=== PATIENT | male | born 1965 | race Caucasian/White ===

== ENCOUNTER → 2017-08-11 | Outpatient (CLI) | payer BC ==
--- NOTE | 2017-08-11 08:46 | Diagnostic Imaging Report ---
INDICATION: Pain in the first metacarpal. TIME OF EXAM: 8:29 AM FINDINGS: The metacarpals appear intact. The phalanges are intact. No fractures are seen. Joint spaces are maintained. Carpus is unremarkable. Alignment is normal. IMPRESSION: No acute bony abnormality is detected. Report given to Dr. Bajwa at 8:45 a.m. 08/11/2017/anahi Dictated by: Dictated on workstation # [id number]
== END ==
LOC: RAD 08:02
PROVIDERS: ATTEND Family Medicine
DX: R22.31 Localized swelling, mass and lump, right upper limb (principal)
CPT/HCPCS: 73130

== ENCOUNTER → 2017-08-17 | Outpatient (CLI) | payer BC ==
[2017-08-17 17:19] LABS: ALANINE AMINOTRANSFERASE 30 U/L (0-55); ALBUMIN 4.3 GM/DL (3.2-4.5); ALKALINE PHOSPHATASE 55 U/L (40-136); BILIRUBIN,TOTAL 0.5 MG/DL (0.1-1.0); BUN/CREATININE RATIO 17; CALCIUM 9.2 MG/DL (8.5-10.1); CARBON DIOXIDE 21 MMOL/L (21-32); CHLORIDE 104 MMOL/L (98-107); CREATININE SERUM 0.81 MG/DL (0.60-1.30); GFR ESTIMATED > 60; GLUCOSE 68 MG/DL (70-105); POTASSIUM 4.2 MMOL/L (3.6-5.0); SODIUM 139 MMOL/L (135-145); TOTAL PROTEIN 7.5 GM/DL (6.4-8.2)
== END ==
LOC: LAB 16:40
PROVIDERS: ATTEND Nurse Practitioner Family
DX: M62.838 Other muscle spasm (principal)
CPT/HCPCS: 36415; 80053

== ENCOUNTER → 2021-06-05 | Outpatient (CLI) | payer BC ==
--- NOTE | 2021-06-05 12:09 | Diagnostic Imaging Report ---
Indication: Fall with right rib pain as well as shortness of breath and wheezing. Heart size normal. Lungs are clear. No infiltrates are seen. No effusion or pneumothorax. No displaced rib fractures identified. IMPRESSION: No acute abnormality is detected. Report was called to Juliana Roca APRN by toni at 12:08PM. Dictated by: Dictated on workstation # [id number]
== END ==
LOC: RAD 11:18
PROVIDERS: ATTEND Nurse Practitioner Family
DX: R07.81 Pleurodynia (principal); R06.02 Shortness of breath; R06.2 Wheezing; W07.XXXA Fall from chair, initial encounter; Z72.0 Tobacco use
CPT/HCPCS: 71101

== ENCOUNTER 2022-06-11 05:08 | Observation (INO) | payer BC ==
[~2022-06-11] VITALS: Ht 178 cm; Wt 106.0 kg
[2022-06-11] MEDS ORDERED: ACETAMINOPHEN 325 MG TABLET PO PRN (08:15)
[2022-06-11] MEDS ORDERED: polyethylene glycoL POWDER 17 GM (MIRALAX) PACK PO PRN (08:15)
[2022-06-11] MEDS ORDERED: MILK OF MAGNESIA 400 MG/5 ML 30 ML UDC PO PRN (08:15)
[2022-06-11] MEDS ORDERED: diphenhydrAMINE 25 MG TAB (BENADRYL) PO PRN (08:15)
[2022-06-11] MEDS ORDERED: ONDANSETRON 4 MG/2 ML (SDV) Z0FRAN IV PRN (08:15)
[2022-06-11] MEDS ORDERED: dilTIAZem DRIP PRE-MIX 125 ML IV SCH (08:15)
[2022-06-11] MEDS ORDERED: CALCIUM CARBONATE 500 MG (TUMS) TAB.CHEW PO PRN (08:15)
[2022-06-11] MEDS ORDERED: ANTACID SUSP 30 ML UDC (MYLANTA) PO PRN (08:15)
[2022-06-11] MEDS ORDERED: MELATONIN 3 MG TABLET PO PRN (08:15)
[2022-06-11] MEDS ORDERED: diphenhydrAMINE 50 MG/ML INJ (BENADRYL) IVP PRN (08:15)
[2022-06-11] MEDS ORDERED: BISACODYL 10 MG SUPP (DULCOLAX) PR PRN (08:15)
[2022-06-11] MEDS ORDERED: LACTULOSE SYRUP 10GM/15ML (ENULOSE) 30ML UDC PO PRN (08:15)
[2022-06-11] MEDS ORDERED: ONDANSETRON 4 MG (ZOFRAN) ORAL DISSOLVE TAB PO PRN (08:15)
[2022-06-11] MEDS: NITROGLYCERIN 0.4 MG SL TABS BTL 25'S SL PRN ×3 (08:45→08:58)
[2022-06-11] MEDS ORDERED: ASPIRIN 81 MG CHEW (CHILDREN'S ASA) PO SCH (09:00)
[2022-06-11] MEDS ORDERED: ALPR1TAB7 PO (09:03)
[2022-06-11] MEDS ORDERED: ESOM40CA52 PO (09:03)
[2022-06-11] MEDS ORDERED: ROSU20TA32 (09:03)
[2022-06-11] MEDS ORDERED: ZOLP10TA PO (09:03)
[2022-06-11] MEDS ORDERED: PANT40TA52 PO (09:03)
[2022-06-11] MEDS ORDERED: NICOTINE 21 MG (NICODERM) PATCH TD NR (09:30)
--- NOTE | 2022-06-11 09:40 | Cardiac Procedure Note-CS/ASA ---
Pre-Procedure Note Pre-Op Procedure Note Date of Available H&P: Jun 11, 2022 Date H&P Reviewed: Jun 11, 2022 Time H&P Reviewed: 09:40 History & Physical: H&P Reviewed, Patient Examed, No changes noted Pre-Operative Diagnosis: Non-ST elevation myocardial infarction Conscious Sedation Pre-Proced Time 09:40 ASA Score 3 For ASA 3 and 4: Consider anesthesia and medical clearance. Also, for patients with a history of failed moderate sedation consider anesthesia. Airway Lungs Heart ASA score ASA 1: a normal healthy patient ASA 2: a patient with a mild systemic disease (mid diabetes, controlled hypertension, obesity ASA 3: a patient with a severe systemic disease that limits activity (angina, COPD, prior Myocardial infarction) ASA 4: a patient with an incapacitating disease that is a constant threat to life (CHF, renal failure) ASA 5: a moribund patient not expected to survive 24 hrs. (ruptured aneurysm) ASA 6: a declared brain- patient whose organs are being harvested. For emergent operations, add the letter E after the classification Mallampati Classification Grade 3 Sedation Plan Analgesia, Amnesia, Plan communicated to team members, Discussed options with patient/fam, Discussed risks with patient/fam The patient is an appropriate candidate to undergo the planned procedure, sedation, and anesthesia. The patient immediately re-assessed prior to indication. HANNY ASH MD Jun 11, 2022 09:40
--- NOTE | 2022-06-11 09:40 | Consultation-Cardiology ---
HPI-Cardiology Cardiology Consultation Date of Consultation 06/11/22 Date of Admission Time Seen by Provider: 09:36 Indication: Chest pain HPI 56-year-old gentleman with history of hyperlipidemia, gastroesophageal reflux disease. Has been having chest pain and left arm pain for about 2 weeks. Yesterday the pain became more severe. [place] discomfort in his left chest and left arm. Came into the emergency room and noted to be in atrial fibrillation with rapid ventricular response. He was transferred from [facility] emergency room. On my evaluation he has converted to sinus rhythm, still having mild chest discomfort, have a Nitropatch on. Reporting episodes of chest pain on and off with exertion on the past few weeks. Has history of gastroesophageal reflux disease, an active smoker and drinking about 5-6 beers daily Home Medications & Allergies Allergies: Coded Allergies: No Known Allergies (Verified Allergy, Unknown, 01/31/06) Home Medication List Reviewed: Yes JJY-Pukpfw-Dxwxox Hx Patient Social History Marital Status: Employed/Student: employed Smoking Status: Current Everyday Smoker Have you traveled recently?: No Alcohol Use?: Yes Past Medical History Discussed below Family Medical History Significant Family History: No Pertinent Family Hx Review of Systems-General Review of Systems Constitutional: no symptoms reported, see HPI EENTM: see HPI, no symptoms reported Respiratory: no symptoms reported, see HPI, dyspnea on exertion Cardiovascular: see HPI, chest pain; No edema, No Hx of Intervention; palpitations; No syncope, No vascular heart diseas, No other Gastrointestinal: no symptoms reported, see HPI Genitourinary: no symptoms reported, see HPI Musculoskeletal: no symptoms reported, see HPI Skin: no symptoms reported, see HPI Psychiatric/Neurological: No Symptoms Reported, See HPI Reviewed Test Results Reviewed Test Results Lab Laboratory Tests Test 06/11/22 08:54 Range/Units Troponin I 4.716 *H <0.028 NG/ML Physical Exam Physical Exam Vital Signs Vital Signs - First Documented 06/11/22 08:00 Pulse 82 Resp 20 B/P (MAP) 150/91 (110) Pulse Ox 95 O2 Delivery Room Air Capillary Refill : Height, Weight, BMI Height: '" Weight: lbs. oz. kg; 33.36 BMI Method: General Appearance: No Apparent Distress, WD/WN Eyes: Bilateral Eye Normal Inspection, Bilateral Eye PERRL, Bilateral Eye EOMI HEENT: PERRL/EOMI, TMs Normal, Normal ENT Inspection, Pharynx Normal, Moist Mucous Membranes Neck: Full Range of Motion, Normal Inspection, Non Tender, Supple, Carotid Bruit Respiratory: Chest Non Tender, Normal Breath Sounds, No Accessory Muscle Use, No Respiratory Distress Cardiovascular: Regular Rate, Rhythm, No Edema, No Gallop, No JVD, No Murmur, Normal Peripheral Pulses Gastrointestinal: Normal Bowel Sounds, No Organomegaly, No Pulsatile Mass, Non Tender, Soft Back: Normal Inspection, No CVA Tenderness, No Vertebral Tenderness Extremity: Normal Capillary Refill, Normal Inspection, Normal Range of Motion, Non Tender, No Calf Tenderness, No Pedal Edema Neurologic/Psychiatric: Alert, Oriented x3, No Motor/Sensory Deficits, Normal Mood/Affect Skin: Normal Color, Warm/Dry Lymphatic: No Adenopathy A/P-Cardiology Admission Diagnosis Non-ST elevation myocardial infarction Paroxysmal atrial fibrillation Hyperlipidemia Tobaccoism Assessment/Plan Non-ST elevation myocardial infarction, probably underlying coronary artery disease, could be secondary to atrial fibrillation with rapid ventricular response Planning to proceed with cardiac catheterization possible PTCA Patient received aspirin 325 mg in the emergency room in addition to Lovenox 90 mg. Atrial fibrillation with rapid ventricular response, started on Cardizem drip, converted to sinus rhythm, new onset. Hyperlipidemia, maintained on statin Gastroesophageal reflux disease, maintained on PPI, discussed the need for endoscopy Tobaccoism, educated on the importance of smoking cessation Moderate alcoholism, drinks 5-6 beers daily, educated on avoiding alcohol. Obesity, BMI 33, discussed weight loss HANNY ASH MD Jun 11, 2022 09:40
[2022-06-11] MEDS ORDERED: fentaNYL INJ 100 MCG/2 ML AMP ONE (09:56)
[2022-06-11] MEDS ORDERED: MIDAZOLAM 5 MG/5 ML (VERSED) VIAL ONE (09:56)
[2022-06-11] MEDS ORDERED: VERAPAMIL 5 MG/2 ML (CALAN) VIAL IV ONE (09:56)
[2022-06-11] MEDS ORDERED: LIDOCAINE 1% INJ 30 ML (XYLOCAINE) VIAL ONE (09:56)
[2022-06-11] MEDS ORDERED: HEParin 1000 UNIT/ML (10ML VIAL) FOR BOLUS ONE (09:56)
[2022-06-11] MEDS ORDERED: NS IV 1000 ML 1,000 ML ONE (09:57)
[2022-06-11] MEDS ORDERED: HEParin (CATH LAB) 2,000 ML IV ONE (09:57)
[2022-06-11] MEDS ORDERED: NITRO DRIP 25000 MCG/D5W 250 ML IV ONE (09:57)
[2022-06-11] MEDS ORDERED: EPTIFIBATIDE BOLUS 20 ML IV ONE (10:57)
[2022-06-11] MEDS ORDERED: CLOPIDOGREL 300 MG (PLAVIX) TABLET PO ONE (11:26)
[2022-06-11] MEDS ORDERED: PATIENT MAY USE OWN MEDS, ALL PO SCH (11:30)
--- NOTE | 2022-06-11 11:34 | Cardiac Cath Report ---
Cardiac Cath Report Physician (s)/Remote Sensing Program Manager (s) Physician HANNY ASH MD Pre-Procedure Diagnosis Pre-Procedure Diagnosis: Non-ST elevation myocardial infarction Post-Procedure Note Procedure Start Date: Jun 11, 2022 Procedure Start Time: 11:25 Name of Procedure: Left heart catheterization Abdominal aortogram Stenting of the circumflex artery Findings/Procedure Note PROCEDURE NOTE: 56-year-old gentleman with history of hyperlipidemia, tobaccoism. Patient has been having waxing and waning chest pain for about 3 weeks, had severe chest pain last night, came into the emergency room and noted to be in atrial fibrillation and having ST depression in the anterior lateral leads and inferior leads. Overnight he converted to sinus rhythm and he continued to have chest pain, cardiac catheterization was advised. After explaining the procedure to the patient, all pros and cons were explained, all questions were answered. The patient signed the consent and then he was placed in the cardiac catheterization laboratory. Groin was prepped in SL fashion local anesthesia was used. I attempted to place a sheath in the right radial artery, could not advance the wire, sheath placed in the right femoral artery artery. I was unable to advance J-wire through the abdominal aorta, I used a long Storq wire and used exchange catheter Gilda' right and left catheter were used to access the coronary system. Pigtail was used to access the left ventricular cavity. Left ventriculogram was not done Pullback LV to aorta was done then I pulled the pigtail down to the abdominal aorta and did abdominal aortogram. Patient was noted to have total occlusion at the mid circumflex artery after the origin of the first obtuse marginal branch. Received 5000 units of heparin, double bolus Integrilin, EBU guide was used and BMW wire was advanced I was able to cross the total occlusion and advanced to the posterior descending artery of the circumflex artery that appeared to be a dominant artery. I proceeded with balloon angioplasty using 2.5 x 20 mm balloon reestablished flow in the circumflex artery appears to be large artery having large first obtuse marginal branch, there is severe stenosis at the second obtuse marginal branch and diffuse disease distally. I advanced a second wire whisper extra-support and placed it in the second obtuse marginal branch then proceeded with balloon angioplasty to the ostium of the obtuse marginal branch with multiple inflation which resolve the obstruction. Then proceeded with deployment of liberty point stent 2.5 x 23 mm placed carefully after the origin of the first obtuse marginal branch deployed under 12atm to 2.65 mm with excellent results. No residual stenosis. At the end of the procedure the sheath was removed. Closure device was deployed FINDINGS: Hemodynamics LV 128/27, end-diastolic pressure of 27 Aorta 126/76 mean of 86 ANATOMY: Left Main is free of obstructive disease Left Anterior Descending has 70% stenosis at the midportion. I am planning for intervening at a later point to limit the exposure to the contrast Left Circumflex has total occlusion of the midportion successful balloon angioplasty and deployment of liberty point stent 2.5 x 23 mm with 0% residual stenosis, PAULA-3 flow postintervention compared to no flow prior to the intervention. The second obtuse marginal branch had 90% ostial stenosis successful balloon angioplasty with 2 x 20 balloon with 0% residual stenosis. 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 Normal SMA and DAISY and renal arteries PERCUTANEOUS INTERVENTION: Pre stenosis 100% Post Stenosis 0% Pre PAULA flow 0 Post PAULA flow 3 Dominance left circumflex CONCLUSION: 1. Total occlusion at the mid circumflex artery with successful angioplasty and stenting using liberty point 2.5 x 23 mm with excellent result no residual stenosis 2. 90% stenosis at the ostium of a second obtuse marginal branch with successful balloon angioplasty with 2 x 20 balloon with excellent results 3. 50% ostial first obtuse marginal branch that is treated conservatively 4. 70% mid LAD stenosis that will be staged for intervention at a later point 5. Small nondominant right coronary artery 6. Elevated left ventricular end-diastolic pressure 7. Difficulty advancing the wire through the abdominal aorta, no dissection or aneurysm. DISCUSSION AND RECOMMENDATION: Patient was started on aspirin, Plavix, metoprolol, losartan, Lipitor 80 mg and Protonix. I will continue maximizing medical therapy and planning to add Xarelto Anesthesia Type: Conscious Sedation Estimated blood loss (mL): 25 ml Contrast Amount: 150 ml Total Radiation Dose: 1602 mGy Post-Procedure Diagnosis Post-operative diagnosis: Non-ST elevation myocardial infarction Coronary artery disease Hyperlipidemia Paroxysmal atrial fibrillation HANNY ASH MD Jun 11, 2022 11:33
--- NOTE | 2022-06-11 11:47 | History & Physical-Hospitalist ---
History of Present Illness HPI/Chief Complaint Phil Harding is a 56 year old male with PMH HLD, GERD, obesity, who presented to [facility] ER with chest pain. He reports having intermittent chest pain for several weeks. He thought it was due to acid reflux. He denies palpitations. Last night, he had more severe chest pain which was sharp in the middle of his chest. He also had nausea and vomiting. He had pain in his left arm. He has no history of heart disease. He smokes a pack and a half of cigarettes daily. He drinks about 6 beers each night. He was found to be in AFib with RVR at [facility] and started on a Cardizem drip. He was given one dose of Lovenox. He also had an elevated troponin. His heart rate is now well controlled. He continues to have chest pain on my exam. Source: patient, family Exam Limitations: no limitations Date Seen 06/11/22 Time Seen by a Provider: 09:15 Attending Physician Hal Garcia MD PCP Admitting Physician: Cindi Robert MD Attending Physician: Cindi Robert MD Referring Physician Date of Admission Jun 11, 2022 at 07:38 Home Medications & Allergies Home Medications Reviewed patient Home Medication Reconciliation performed by pharmacy medication reconciliations aircraft maintenance technician and/or nursing. Patients Allergies have been reviewed. Allergies Allergies Coded Allergies No Known Allergies (Verified Allergy, Unknown, 01/31/06) Past Regorbp-Owfutl-Hzutuj Hx Patient Social History Marrital Status: Employed/Student: employed Tobacco Use?: Yes Tobacco type used: Cigarettes Smoking Status: Current Everyday Smoker Alcohol Use?: Yes Alcohol Frequency: Daily Pt feels they are or have been: No Immunizations Up To Date Date of Influenza Vaccine: Jun 08, 2022 Current Status Advance Directives: No Communicates: Verbally Primary Language: Albanian Preferred Spoken Language: Albanian Is interpretation needed?: No Sensory deficits: Vision impairment Past Medical History High Cholesterol Gastroesophageal Reflux Family Medical History Hypertension Review of Systems Constitutional: no symptoms reported EENTM: no symptoms reported Respiratory: no symptoms reported Cardiovascular: chest pain Gastrointestinal: nausea, vomiting Physical Exam Physical Exam Vital Signs Vital Signs - First Documented 06/11/22 08:00 Pulse 82 Resp 20 B/P (MAP) 150/91 (110) Pulse Ox 93 O2 Delivery Room Air Capillary Refill : Height, Weight, BMI Height: '" Weight: lbs. oz. kg; 33.36 BMI Method: General Appearance: No Apparent Distress, Obese HEENT: PERRL/EOMI, Pharynx Normal Neck: Normal Inspection Respiratory: Lungs Clear, Normal Breath Sounds, No Respiratory Distress Cardiovascular: Regular Rate, Rhythm, No Edema, No Murmur Gastrointestinal: Normal Bowel Sounds, Non Tender, Soft Extremity: Normal Inspection, No Pedal Edema Neurologic/Psychiatric: Alert, Oriented x3, No Motor/Sensory Deficits, Other (tearful) Skin: Normal Color, Warm/Dry Results Results/Procedures Labs Patient resulted labs reviewed. Assessment/Plan Admission Diagnosis NSTEMI Admission Status: Observation Assessment and Plan NSTEMI CAD HTN HLD Obesity Troponin significantly elevated EKG with T wave inversions inferior leads, some ST depression anterior leads Persistent chest pain Cardiology consulted Left heart cath with multi-vessel CAD, stenting and balloon angioplasty performed ASA, Plavix, Losartan, Metoprolol, and Lipitor New onset AFib with RVR RVR resolved with Cardizem gtt Received one dose Lovenox in [facility] Converted to normal sinus rhythm Metoprolol and Xarelto GERD PPI May benefit from upper endoscopy outpatient Tobacco abuse Alcohol abuse Nicotine patch Recommend cessation Critical Care Critically Ill Patient Diagnosis/Problems Diagnosis/Problems (1) NSTEMI (non-ST elevation myocardial infarction) Status: Acute (2) Multi-vessel coronary artery stenosis Status: Acute (3) Atrial fibrillation with RVR Status: Acute (4) HTN (hypertension) Status: Acute (5) HLD (hyperlipidemia) Status: Acute (6) Obesity Status: Acute (7) Tobacco abuse Status: Acute (8) Alcohol abuse Status: Acute CINDI ROBERT MD Jun 11, 2022 11:47
[2022-06-11] MEDS: NS IV 1000 ML 1,000 ML IV SCH ×2 (12:12→23:16)
[2022-06-11] MEDS: inSUlin ASPART (NovoLOG) 1 UNIT/0.01 ML (CHARGE PER UNIT) SC SCH ×2 (17:42→20:44)
[2022-06-12 04:50] LABS: HEMATOCRIT 47 % (40-54); HEMOGLOBIN 15.7 g/dL (13.3-17.7); MEAN CORPUSCULAR HEMOGLOBIN 31 pg (25-34); MEAN CORPUSCULAR HGB CONC 34 g/dL (32-36); MEAN CORPUSCULAR VOLUME 92 fL (80-99); MEAN PLATELET VOLUME 11.6 fL (9.0-12.2); PLATELET COUNT 179 10^3/uL (130-400); WHITE BLOOD COUNT 11.5 10^3/uL (4.3-11.0)
[2022-06-12 05:02] LABS: POTASSIUM 3.9 MMOL/L (3.6-5.0)
[2022-06-12 05:04] LABS: CALCIUM 8.9 MG/DL (8.5-10.1)
[2022-06-12 05:08] LABS: CREATININE SERUM 0.86 MG/DL (0.60-1.30)
[2022-06-12] MEDS: inSUlin ASPART (NovoLOG) 1 UNIT/0.01 ML (CHARGE PER UNIT) SC SCH (05:28)
[2022-06-12] MEDS: NS IV 1000 ML 1,000 ML IV SCH (05:28)
--- NOTE | 2022-06-12 07:34 | Tele-ICU Progress Note ---
Progress Note Video assessment done , Hemodynamically stable Available charting reviewed, discussed with RN NO TELE-ICU CONSULT REQUESTED CONTINUE TO MONITOR PER USUAL TELE-ICU PROTOCOL No need for Tele-ICU interventions Plans as delineated by bedside physicians / consultants Focused Exam Height, Weight, BMI Height: '" Weight: lbs. oz. kg; 33.36 BMI Method: MARTINA CLAUDIO MD Jun 12, 2022 07:34
[2022-06-12] MEDS ORDERED: NICOTINE PATCH REMOVAL TP SCH (08:59)
[2022-06-12] MEDS ORDERED: ASPIRIN E.C. 81 MG (ECOTRIN) TAB PO SCH (09:00)
[2022-06-12] MEDS ORDERED: CLOPIDOGREL 75 MG (PLAVIX) TABLET PO SCH (09:00)
[2022-06-12] MEDS ORDERED: NICOTINE 21 MG (NICODERM) PATCH TD SCH (09:00)
[2022-06-12] MEDS ORDERED: LOSARTAN 25 MG (COZAAR) TAB PO SCH (09:00)
[2022-06-12] MEDS ORDERED: PANTOPRAZOLE 40 MG (PROTONIX) TAB PO SCH (09:00)
[2022-06-12] MEDS ORDERED: ASPI-1238 PO (09:55)
[2022-06-12] MEDS ORDERED: CLOP75TA28 PO (09:55)
[2022-06-12] MEDS ORDERED: LOSA25TA41 PO (09:55)
[2022-06-12] MEDS ORDERED: RIVA1TAB PO (09:55)
[2022-06-12] MEDS ORDERED: ROSU40TA23 PO (09:55)
[2022-06-12] MEDS ORDERED: MTP25TSR PO (09:55)
[2022-06-12] MEDS ORDERED: RIVAROXABAN 15 MG TABLET (XARELTO) PO NR (10:00)
--- NOTE | 2022-06-12 10:10 | Cardiology Progress Note ---
Subjective Date Seen by Provider: Jun 12, 2022 Time Seen by Provider: 10:07 Subjective/Events-last exam Patient was seen at bedside, laying down comfortably, feeling better. Review of Systems General: No Chills, No Night Sweats, No Fatigue, No Malaise, No Appetite, No Other HEENT: No Head Aches, No Visual Changes, No Eye Pain, No Ear Pain, No Dysphasia, No Sinus Congestion, No Post Nasal Drip, No Sore Throat, No Other Pulmonary: No Dyspnea, No Cough, No Pleuritic Chest Pain, No Other Cardiovascular: No: Chest Pain, Palpitations, Orthopnea, Paroxysmal Noc. Dyspnea, Edema, Lt Headedness, Other Objective-Cardiology Exam Last Set of Vital Signs Vital Signs 06/12/22 08:00 Pulse 75 Resp 15 B/P (MAP) 127/71 (89) Pulse Ox 96 O2 Delivery Room Air I&O Intake and Output 06/12/22 00:00 Intake Total 500 ml Output Total 1500 ml Balance -1000 ml Intake Oral 500 ml Output Urine Total 1500 ml # Voids 1 Daily Weight Change No General: Alert, Oriented X3, Cooperative HEENT: Atraumatic, PERRLA Neck: Supple, No JVD, No Thyromegaly Lungs: Clear to Auscultation, Normal Air Movement Heart: Regular Rate, Normal S1, Normal S2, No Murmurs Abdomen: Normal Bowel Sounds, Soft, No Tenderness, No Hepatosplenomegaly, No Masses Extremities: No Clubbing, No Cyanosis, No Edema, Normal Pulses, No Tenderness/Swelling Skin: No Rashes, No Breakdown, No Significant Lesion Neuro: Normal Gait, Normal Speech, Strength at 5/5 X4 Ext, Normal Tone, Sensation Intact Psych/Mental Status: Mental Status NL, Mood NL Results Lab Laboratory Tests 06/12/22 04:25 A/P-Cardiology Admission Diagnosis Non-ST elevation myocardial infarction Paroxysmal atrial fibrillation Hyperlipidemia Tobaccoism Assessment/Plan Non-ST elevation myocardial infarction, probably underlying coronary artery disease, could be secondary to atrial fibrillation with rapid ventricular response Cardiac catheterization was done on June 11, 2022 with total occlusion of the circumflex artery, stenting of the mid circumflex artery and balloon angioplasty to the second obtuse marginal branch with excellent results. Patient has70% stenosis in the mid LAD that will be staged to be done at a later point. Patient is feeling better, asymptomatic, planning to discharge and follow-up as an outpatient Atrial fibrillation with rapid ventricular response, started on Cardizem drip, converted to sinus rhythm, new onset. [id number] score 2, started on Xarelto. Hyperlipidemia, was started on Crestor 20 mg daily recently, will increase the dose to 40 mg daily Gastroesophageal reflux disease, maintained on PPI, discussed the need for endoscopy Tobaccoism, educated on the importance of smoking cessation Moderate alcoholism, drinks 5-6 beers daily, educated on avoiding alcohol. Obesity, BMI 33, discussed weight loss HANNY ASH MD Jun 12, 2022 10:10
--- NOTE | 2022-06-12 11:01 | Discharge Summary ---
Discharge Summary Hospital Course Was the Problem List Reviewed?: Yes Problems/Dx: (1) NSTEMI (non-ST elevation myocardial infarction) Status: Acute (2) Multi-vessel coronary artery stenosis Status: Acute (3) Atrial fibrillation with RVR Status: Acute (4) HTN (hypertension) Status: Acute (5) HLD (hyperlipidemia) Status: Acute (6) Obesity Status: Acute (7) Tobacco abuse Status: Acute (8) Alcohol abuse Status: Acute Hospital Course Date of Admission: Jun 11, 2022 at 07:38 Admission Diagnosis : NSTEMI, AFib with RVR Family Physician/Provider: Hal Meehan MD Date of Discharge: 06/12/22 Discharge Diagnosis: NSTEMI, AFib with RVR Hospital Course: Phil Harding is a 56 year old male with PMH HTN, HLD, GERD, obesity, tobacco abuse, alcohol abuse, who presented to [facility] ER with chest pain and was transferred to [facility] for new onset atrial fibrillation with RVR and NSTEMI. He was started on a Cardizem gtt and he converted to normal sinus rhythm. He was given a dose of Lovenox in their ER. Cardiology was consulted and assisted with his care. His troponin was elevated and trended up. He was given ASA and Plavix. He was taken for left heart cath which revealed multi-vessel coronary artery disease. He had a coronary stent and balloon angioplasty performed. Another lesion was planned for staged PCI. He was started on ASA, Plavix, Metoprolol, Losartan, and Xarelto. His Crestor dose was increased. He was encouraged to discontinue tobacco and alcohol use completely. He was discharged home in stable condition. He should follow up with his PCP and Cardiology as scheduled. Labs and Pending Lab Test: Laboratory Tests 06/11/22 17:34: Glucometer 164H 06/12/22 04:25: White Blood Count 11.5H, Red Blood Count 5.06, Hemoglobin 15.7, Hematocrit 47, Mean Corpuscular Volume 92, Mean Corpuscular Hemoglobin 31, Mean Corpuscular Hemoglobin Concent 34, Red Cell Distribution Width 13.2, Platelet Count 179, Mean Platelet Volume 11.6, Sodium Level 138, Potassium Level 3.9, Chloride Level 106, Carbon Dioxide Level 21, Anion Gap 11, Blood Urea Nitrogen 11, Creatinine 0.86, Estimat Glomerular Filtration Rate 100, BUN/Creatinine Ratio 13, Glucose Level 110H, Calcium Level 8.9, Troponin I 79.041*H, Triglycerides Level 133, Cholesterol Level 127, LDL Cholesterol Direct 70, VLDL Cholesterol 27, HDL Cholesterol 37L Home Meds Active Xarelto Starter Pack (Rivaroxaban) 15 Mg (42)- 20 Mg (9) Tab.ds.pk 1 Each PO UD 15mg by mouth twice daily x 21 days then 20mg by mouth daily Aspirin EC (Aspirin) 81 Mg Tablet.dr 81 Mg PO DAILY 30 Days Losartan Potassium 25 Mg Tablet 25 Mg PO DAILY 30 Days Metoprolol Succinate 25 Mg Tab.er.24h 25 Mg PO DAILY 30 Days Clopidogrel (Clopidogrel Bisulfate) 75 Mg Tablet 75 Mg PO DAILY 90 Days Rosuvastatin Calcium 40 Mg Tablet 40 Mg PO HS 30 Days Reported Ambien (Zolpidem Tartrate) 10 Mg Tablet 10 Mg PO DAILY Alprazolam 1 Mg Tablet 1 Mg PO Pantoprazole Sodium 40 Mg Tablet.dr 40 Mg PO DAILY Assessment/Pt Instructions See instructions Discharge Planning: >30 minutes discharge planning Discharge Instructions Discharge Diet: Low Sodium Diet Activity as Tolerated: Yes Consultations Cardiology Discharge Physical Examination Vital Signs Vital Signs Date Time Temp Pulse Resp B/P (MAP) Pulse Ox O2 Delivery O2 Flow Rate FiO2 06/12/22 08:00 75 15 127/71 (89) 96 Room Air 06/12/22 04:00 36.0 General Appearance: No Apparent Distress, Obese Respiratory: Lungs Clear, No Respiratory Distress Cardiovascular: Regular Rate, Rhythm, No Murmur Gastrointestinal: Normal Bowel Sounds, Soft Extremity: Normal Inspection, No Pedal Edema Skin: Normal Color, Warm/Dry Neurologic/Psychiatric: Alert, Normal Mood/Affect Allergies: Coded Allergies: No Known Allergies (Verified Allergy, Unknown, 01/31/06) Copy Copies To 1: HAL MEEHAN MD Discharge Summary Date of Admission Jun 11, 2022 at 07:38 Date of Discharge Discharge Date: Jun 12, 2022 Discharge Time: 10:55 Admission Diagnosis NSTEMI Consults/Procedures Consulations Cardiology Procedures Left heart cath with coronary stenting and balloon angioplasty Discharge Diagnosis NSTEMI CAD HTN HLD Obesity New onset AFib with RVR GERD Tobacco abuse Alcohol abuse (1) NSTEMI (non-ST elevation myocardial infarction) Status: Acute (2) Multi-vessel coronary artery stenosis Status: Acute (3) Atrial fibrillation with RVR Status: Acute (4) HTN (hypertension) Status: Acute (5) HLD (hyperlipidemia) Status: Acute (6) Obesity Status: Acute (7) Tobacco abuse Status: Acute (8) Alcohol abuse Status: Acute BELLA ROBERT MD Jun 12, 2022 10:59
[2022-06-12] MEDS ORDERED: RIVAROXABAN 15 MG TABLET (XARELTO) PO SCH ×2 (19:00)
[2022-06-12] MEDS ORDERED: RELABEL FOR HOME USE MC SCH (21:00)
[2022-07-03] MEDS ORDERED: RIVAROXABAN 20 MG TABLET (XARELTO) PO SCH (17:00)
== END 2022-06-12 09:56 | disposition home or self-care (01) ==
LOC: UNDOADMOB 07:38 → ICU 07:38 → UNDODISOB 06-12 09:56
PROVIDERS: ADMIT Internal Medicine; ATTEND Internal Medicine
DX: I21.4 Non-ST elevation (NSTEMI) myocardial infarction (principal); I25.10 Atherosclerotic heart disease of native coronary artery without angina pectoris; I10 Essential (primary) hypertension; E78.5 Hyperlipidemia, unspecified; E66.9 Obesity, unspecified; F17.210 Nicotine dependence, cigarettes, uncomplicated; F10.10 Alcohol abuse, uncomplicated; K21.9 Gastro-esophageal reflux disease without esophagitis; I48.0 Paroxysmal atrial fibrillation; Z68.33 Body mass index [BMI] 33.0-33.9, adult
CPT/HCPCS: 36140; 80048; 80061; 82947; 84484 ×2; 85027; 85347; 92921; 93005 ×2; 93458; C1725 ×2; C1760; C1769 ×3; C1874; C1887; C1894; C8929; C9600; G0378; G0379; 36415; 93306

== ENCOUNTER 2022-08-03 07:47 | Day surgery (SDC) | payer BC ==
[~2022-08-03] VITALS: Ht 172 cm; Wt 95.3 kg
[~2022-08-03 07:47] MED LIST: ALPR1TAB7 PO; ASPI-1238 PO; CLOP75TA28 PO; ESOM40CA52 PO; LOSA25TA41 PO; MTP25TSR PO; PANT40TA52 PO; RIVA1TAB PO; ROSU20TA32; ROSU40TA23 PO; ZOLP10TA PO
[2022-08-03] MEDS ORDERED: NS IV 1000 ML 1,000 ML IV ONE (08:30)
[2022-08-03] MEDS ORDERED: HEParin (CATH LAB) 2,000 ML IV ONE (08:36)
[2022-08-03] MEDS ORDERED: LIDOCAINE 1% INJ 20 ML VIAL ONE (08:36)
[2022-08-03] MEDS ORDERED: NS IV 1000 ML 1,000 ML ONE (08:36)
--- NOTE | 2022-08-03 09:02 | Diagnostic Imaging Report ---
Indication: Coronary artery disease COMPARISON: 06/05/2021 TECHNIQUE: Single radiograph chest dated 08/03/2022. FINDINGS: The cardiac silhouette is within normal limits in size. No significant pulmonary vascular congestion. The lungs are clear of focal pulmonary opacity. No pleural effusion. No pneumothorax. No acute osseous abnormality. IMPRESSION: Similar-appearing examination without acute cardiopulmonary abnormality. Dictated by: Dictated on workstation # [id number]
[2022-08-03 09:07] LABS: HEMATOCRIT 52 % (40-54); HEMOGLOBIN 17.7 g/dL (13.3-17.7); MEAN CORPUSCULAR HEMOGLOBIN 31 pg (25-34); MEAN CORPUSCULAR HGB CONC 34 g/dL (32-36); MEAN CORPUSCULAR VOLUME 89 fL (80-99); MEAN PLATELET VOLUME 10.9 fL (9.0-12.2); PLATELET COUNT 254 10^3/uL (130-400); WHITE BLOOD COUNT 9.4 10^3/uL (4.3-11.0)
[2022-08-03 09:08] LABS: BILIRUBIN,URINE NEGATIVE (NEGATIVE); CLARITY,URINE CLEAR; COLOR,URINE ORANGE; GLUCOSE, URINE (UA) NEGATIVE (NEGATIVE); KETONES,URINE NEGATIVE (NEGATIVE); LEUKOCYTE ESTERASE ,URINE NEGATIVE (NEGATIVE); NITRITE,URINE NEGATIVE (NEGATIVE); PROTEIN,URINE TRACE (NEGATIVE)
[2022-08-03] MEDS ORDERED: ROSU40TA23 PO (09:11)
[2022-08-03] MEDS ORDERED: ASPI-1238 PO (09:11)
[2022-08-03] MEDS ORDERED: LOSA25TA41 PO (09:11)
[2022-08-03] MEDS ORDERED: RIVA20TA PO (09:11)
[2022-08-03] MEDS ORDERED: MTP25TSR PO (09:11)
[2022-08-03] MEDS ORDERED: CLOP75TA28 PO (09:11)
[2022-08-03 09:13] VITALS: BP 149/80
[2022-08-03 09:16] LABS: ALBUMIN 4.3 GM/DL (3.2-4.5); POTASSIUM 4.1 MMOL/L (3.6-5.0)
[2022-08-03 09:18] LABS: CALCIUM 9.4 MG/DL (8.5-10.1)
[2022-08-03 09:19] LABS: TOTAL PROTEIN 7.9 GM/DL (6.4-8.2)
[2022-08-03 09:20] LABS: INR 1.1 (0.8-1.4); PROTHROMBIN TIME PATIENT 14.5 SEC (12.2-14.7)
[2022-08-03 09:21] LABS: BILIRUBIN,TOTAL 0.9 MG/DL (0.1-1.0)
[2022-08-03 09:22] LABS: CREATININE SERUM 0.91 MG/DL (0.60-1.30)
[2022-08-03 09:23] LABS: BACTERIA,URINE NEGATIVE /HPF; HYALINE CASTS, URINE RARE /LPF; SQUAMOUS EPITHELIAL CELL,UR RARE /HPF; WBC,URINE 0-2 /HPF
[2022-08-03] MEDS ORDERED: MIDAZOLAM 5 MG/5 ML (VERSED) VIAL ONE ×2 (10:25→13:55)
[2022-08-03] MEDS ORDERED: fentaNYL INJ 100 MCG/2 ML AMP ONE ×3 (10:25→14:54)
[2022-08-03] MEDS ORDERED: ADENOSINE 90 MG/30 ML (ADENOSCAN) VIAL IV ONE (10:25)
[2022-08-03] MEDS ORDERED: NITRO DRIP 25000 MCG/D5W 0 ML IV ONE (10:26)
[2022-08-03] MEDS ORDERED: HEParin 1000 UNIT/ML (10ML VIAL) FOR BOLUS ONE ×2 (10:26→13:55)
[2022-08-03] MEDS ORDERED: VERAPAMIL 5 MG/2 ML (CALAN) VIAL IV ONE ×2 (10:26→13:55)
[2022-08-03] MEDS ORDERED: NITRO DRIP 25000 MCG/D5W 250 ML IV ONE ×2 (13:55→18:33)
--- NOTE | 2022-08-03 14:16 | Cardiac Procedure Note-CS/ASA ---
Pre-Procedure Note Pre-Op Procedure Note Date of Available H&P: Jul 14, 2022 Date H&P Reviewed: Aug 03, 2022 Time H&P Reviewed: 14:16 History & Physical: H&P Reviewed, Patient Examed, No changes noted Pre-Operative Diagnosis: CAD Conscious Sedation Pre-Proced Time 14:16 ASA Score 3 For ASA 3 and 4: Consider anesthesia and medical clearance. Also, for patients with a history of failed moderate sedation consider anesthesia. Airway Lungs Heart ASA score ASA 1: a normal healthy patient ASA 2: a patient with a mild systemic disease (mid diabetes, controlled hypertension, obesity ASA 3: a patient with a severe systemic disease that limits activity (angina, COPD, prior Myocardial infarction) ASA 4: a patient with an incapacitating disease that is a constant threat to life (CHF, renal failure) ASA 5: a moribund patient not expected to survive 24 hrs. (ruptured aneurysm) ASA 6: a declared brain- patient whose organs are being harvested. For emergent operations, add the letter E after the classification Mallampati Classification Grade 3 Sedation Plan Analgesia, Amnesia, Plan communicated to team members, Discussed options with patient/fam, Discussed risks with patient/fam The patient is an appropriate candidate to undergo the planned procedure, sedation, and anesthesia. The patient immediately re-assessed prior to indication. HANNY ASH MD Aug 03, 2022 14:16
[2022-08-03] MEDS ORDERED: MIDAZOLAM 2 MG/2 ML (VERSED) VIAL ONE ×2 (14:55→15:06)
[2022-08-03] MEDS ORDERED: meTOprolol 5 MG/5 ML (LOPRESSOR) VIAL ONE (15:08)
[2022-08-03] MEDS ORDERED: ASPIRIN 325 MG (5 GR) TABLET ONE (15:21)
[2022-08-03] MEDS ORDERED: CLOPIDOGREL 300 MG (PLAVIX) TABLET PO ONE (15:21)
[2022-08-03] MEDS ORDERED: PANTOPRAZOLE 40 MG (PROTONIX) TAB PO PRN (15:30)
--- NOTE | 2022-08-03 16:11 | Cardiac Cath Report ---
Cardiac Cath Report Physician (s)/Python Web Developer (s) Physician HANNY ASH MD Pre-Procedure Diagnosis Pre-Procedure Diagnosis: CAD Post-Procedure Note Procedure Start Date: Aug 03, 2022 Name of Procedure: Stenting to the LAD IFR to the LAD IVUS to the LAD Findings/Procedure Note PROCEDURE NOTE: 56-year-old gentleman with a history of coronary artery disease, admitted with acute myocardial infarction June 2022 and had stenting to the circumflex negrito ry, had borderline lesion in the LAD I decided to stage it for later point. After explaining the procedure to the patient, all pros and cons were explained, all questions were answered. The patient signed the consent and then he was placed in the cardiac catheterization laboratory. Groin was prepped in SL fashion local anesthesia was used. Sheath placed in the right radial artery, I attempted with a EBU catheter to engage the left system without success I used Gilda left 3.5 and engage the left system, angiogram was done then I advanced IFR wire and baseline IFR was 0.85. Then I proceeded with predilatation with balloon angioplasty then I deployed the first stent using Skypoint 3 x 28 mm, angiogram showed persistent of proximal lesion to that stent so I used another Skypoint approximately 3 x 18 mm overlapped with the previous stent, postdilated then I did IVUS which showed under deployment of the stent then I advanced a noncompliant trek balloon 3.5 x 20 under 15 carmenza expanding to 3.57 IFR postintervention was 0.87. Really did the angiogram and I was satisfied with the results. At the end of the procedure the sheath was removed. Vascular band was used FINDINGS: ANATOMY: Left Main is free of obstructive disease Left Anterior Descending has a long lesion of 80% at most with successful deployment of 2 overlapping stents 3 x 18 mm followed by 3 x 28 mm Skypoint stents expanded proximally to 3.57 and distally to 3.2 with 0% residual stenosis Left Circumflex has a patent stent with no other obstructive disease, the first obtuse marginal branch has 50% stenosis nonobstructive disease Right Coronary Artery was not evaluated PERCUTANEOUS INTERVENTION: Pre stenosis 80% Post Stenosis 0% Pre PAULA flow 3 Post PAULA flow 3 Dominance left circumflex CONCLUSION: 1. Severe stenosis in the LAD with successful IVUS and IFR then deployment of 2 overlapping stent Skypoint 3 x 18 mm followed by 3 x 28 mm expanded proximally to 3.57 and distally 3.2 with 0% residual stenosis DISCUSSION AND RECOMMENDATION: Continue with aspirin and Plavix and continue to maximize medical therapy Anesthesia Type: Conscious Sedation Estimated blood loss (mL): 25 ml Contrast Amount: 130 ml Total Radiation Dose: 1288 mGy Post-Procedure Diagnosis Post-operative diagnosis: Coronary artery disease Hypertension Hyperlipidemia HANNY ASH MD Aug 03, 2022 16:11
[2022-08-03] MEDS ORDERED: ZOLPIDEM 5 MG (AMBIEN) TAB PO PRN (16:15)
[2022-08-03] MEDS: NS IV 1000 ML 1,000 ML IV SCH ×2 (16:34→18:36)
[2022-08-03] MEDS ORDERED: PANTOPRAZOLE 40 MG (PROTONIX) VIAL IV NR (17:30)
[2022-08-03] MEDS: NITROGLYCERIN 0.4 MG SL TABS BTL 25'S SL PRN ×3 (17:47→18:02)
[2022-08-03] MEDS ORDERED: NITRO DRIP 25000 MCG/D5W 250 ML IV SCH (18:00)
[2022-08-03] MEDS ORDERED: ZOLPIDEM 5 MG (AMBIEN) TAB PO SCH (21:00)
[2022-08-03] MEDS ORDERED: NON-FORMULARY MEDICATION 1 EA EA (Zolpidem Tartrate (Ambien) 10 MG) PO SCH (21:00)
[2022-08-03] MEDS ORDERED: ALPRAZolam 1 MG (XANAX) TAB PO SCH (21:00)
[2022-08-04] MEDS ORDERED: NS IV 500 ML 500 ML IV PRN (03:00)
[2022-08-04] MEDS ORDERED: KCL 20 MEQ TAB (K-DUR) PO SCH (06:00)
[2022-08-04] MEDS ORDERED: POTASSIUM CL 10MEQ/50ML IVPB 50 ML IV SCH (06:00)
[2022-08-04] MEDS ORDERED: MAGNESIUM 1 GM/100 ML IVPB 100 ML IV SCH (06:00)
[2022-08-04 06:08] LABS: BASOPHILS # (AUTO) 0.1 10^3/uL (0.0-0.1); BASOPHILS % (AUTO) 1 % (0-10); EOSINOPHILS # (AUTO) 0.3 10^3/uL (0.0-0.3); EOSINOPHILS % (AUTO) 3 % (0-10); HEMATOCRIT 45 % (40-54); HEMOGLOBIN 15.7 g/dL (13.3-17.7); LYMPHOCYTES # (AUTO) 2.1 10^3/uL (1.0-4.0); LYMPHOCYTES % (AUTO) 20 % (12-44); MEAN CORPUSCULAR HEMOGLOBIN 31 pg (25-34); MEAN CORPUSCULAR HGB CONC 35 g/dL (32-36); MEAN CORPUSCULAR VOLUME 88 fL (80-99); MEAN PLATELET VOLUME 10.8 fL (9.0-12.2); MONOCYTES # (AUTO) 0.7 10^3/uL (0.0-1.0); MONOCYTES % (AUTO) 7 % (0-12); NEUTROPHILS # (AUTO) 7.3 10^3/uL (1.8-7.8); NEUTROPHILS % (AUTO) 70 % (42-75); PLATELET COUNT 217 10^3/uL (130-400); WHITE BLOOD COUNT 10.5 10^3/uL (4.3-11.0)
[2022-08-04 06:12] LABS: POTASSIUM 3.8 MMOL/L (3.6-5.0)
[2022-08-04 06:13] LABS: CALCIUM 8.7 MG/DL (8.5-10.1)
[2022-08-04 06:18] LABS: CREATININE SERUM 0.84 MG/DL (0.60-1.30)
[2022-08-04 06:44] LABS: EOSINOPHILS % (MANUAL) 3 %; LYMPHOCYTES % (MANUAL) 22 %; MONOCYTES % (MANUAL) 7 %; NEUTROPHILS % (MANUAL) 68 %; PLATELET ESTIMATE ADEQUATE; RBC MORPH NORMAL
--- NOTE | 2022-08-04 07:58 | Cardiology Progress Note ---
Subjective Date Seen by Provider: Aug 04, 2022 Time Seen by Provider: 07:56 Subjective/Events-last exam Patient is laying down in bed, feeling better, very minimal chest pain today Review of Systems General: No Chills, No Night Sweats, No Fatigue, No Malaise, No Appetite, No Other HEENT: No Head Aches, No Visual Changes, No Eye Pain, No Ear Pain, No Dysphasia, No Sinus Congestion, No Post Nasal Drip, No Sore Throat, No Other Pulmonary: No Dyspnea, No Cough, No Pleuritic Chest Pain, No Other Cardiovascular: Chest Pain; No: Palpitations, Orthopnea, Paroxysmal Noc. Dyspnea, Edema, Lt Headedness, Other Objective-Cardiology Exam Last Set of Vital Signs Vital Signs I&O Intake and Output 08/04/22 00:00 Intake Total 1200 ml Output Total 250 ml Balance 950 ml Intake Oral 200 ml IV Total 1000 ml Output Urine Total 250 ml Daily Weight Change No General: Alert, Oriented X3, Cooperative HEENT: Atraumatic, PERRLA Neck: Supple, No JVD, No Thyromegaly Lungs: Clear to Auscultation, Normal Air Movement Heart: Regular Rate, Normal S1, Normal S2, No Murmurs Abdomen: Normal Bowel Sounds, Soft, No Tenderness, No Hepatosplenomegaly, No Masses Extremities: No Clubbing, No Cyanosis, No Edema, Normal Pulses, No Tenderness/Swelling Skin: No Rashes, No Breakdown, No Significant Lesion Neuro: Normal Gait, Normal Speech, Strength at 5/5 X4 Ext, Normal Tone, Sensation Intact Psych/Mental Status: Mental Status NL, Mood NL Results Lab Laboratory Tests 08/03/22 09:00 08/04/22 05:57 A/P-Cardiology Admission Diagnosis Chest pain Non-ST elevation myocardial infarction Coronary artery disease Hypertension Paroxysmal atrial fibrillation Assessment/Plan Chest pain, non-ST elevation myocardial infarction Probably due to occlusion of small septal branches. Currently on nitroglycerin drip, I switched him to Imdur Continue to monitor his symptoms EKG did not show any acute changes Coronary artery disease, status postmyocardial infarction in June 2022 with stenting of the circumflex artery, return for IFR and IVUS then stenting to the LAD using 2 overlapping stent 3 x 28 and 3 x 18 Skypoint stents overlapping, expanded to 3.5 with no residual stenosis. Hypertension, controlled, monitor blood pressure Hyperlipidemia, continue on Lipitor Paroxysmal atrial fibrillation, had transient episode of atrial fibrillation last night back in sinus rhythm. HANNY ASH MD Aug 04, 2022 07:58
[2022-08-04] MEDS ORDERED: KCL 20 MEQ TAB (K-DUR) PO NR (08:00)
[2022-08-04] MEDS ORDERED: RIVAROXABAN 20 MG TABLET (XARELTO) PO SCH (08:00)
[2022-08-04] MEDS: MAGNESIUM 1 GM/100 ML IVPB 100 ML IV SCH ×4 (08:48→10:25)
[2022-08-04] MEDS ORDERED: ROSUVASTATIN 20 MG (CRESTOR) TABLET PO SCH (09:00)
[2022-08-04] MEDS ORDERED: LOSARTAN 25 MG (COZAAR) TAB PO SCH (09:00)
[2022-08-04] MEDS ORDERED: CLOPIDOGREL 75 MG (PLAVIX) TABLET PO SCH (09:00)
[2022-08-04] MEDS ORDERED: NON-FORMULARY MEDICATION 1 EA EA (Rosuvastatin Calcium 40 MG) PO SCH (09:00)
[2022-08-04] MEDS ORDERED: ISOSORBIDE MONONITRATE 30 MG (IMDUR) TAB PO SCH (09:00)
[2022-08-04] MEDS ORDERED: ASPIRIN E.C. 81 MG (ECOTRIN) TAB PO SCH (09:00)
[2022-08-04] MEDS: NS IV 1000 ML 1,000 ML IV SCH (13:30)
[2022-08-04] MEDS ORDERED: ISOS30TA82 PO (15:17)
--- NOTE | 2022-08-04 15:17 | Discharge Inst-Post CATH ---
Discharge Inst-CATH/EP Problems Reviewed?: Yes Post Cardiac Cath/EP D/C Inst Follow Up/Plan Appointment with Dr. Pérez's office in 2 to 4-week <b>CARDIAC CATH/EP PROCEDURE DISCHARGE INSTRUCTIONS</b> ACTIVITY * Go Home directly and rest. * Limit activity of the leg (or wrist if it was used) for 7 days including aero bics, swimming, jogging, bicycling, etc. * Restrict stair-climbing for 7 days if possible, if not, climb up with your non-cath leg, then bring together on the same step. * Avoid lifting, pushing, pulling or excessive movement of the affected extremit y for 7 days. * Customary sexual activity may be resumed after 2 days-use caution not to use a position that strains or causes pain to the affected extremity. * No driving for 24 hours. * NO SMOKING. * Avoid straining for bowel movements for 7 days. * Gentle walking on level ground is allowed. * Returning to work will depend on the type of procedure and the results. Your doctor will discuss this with you. CALL YOUR DOCTOR FOR ANY OF THE FOLLOWING: *If bleeding from the puncture site occurs- Apply gentle pressure to site with clean cloth and call your doctor or EMS. * If a knot or lump forms under the skin, increases in size, or causes pain. * If bruising appears to be worsening or moving further down your leg instead of disappearing. * Temperature above 101 F. CARE OF YOUR GROIN INCISION; * Bruising or purple discoloration of the skin near the puncture site is common. * You may shower only, no bathtub bathing for 5 days. Be careful to avoid slipping as your leg may feel stiff. * If a closure device was used on your femoral artery, please see the attached guide regarding care of the device and your leg. * Leave dressing on FOR 24 hours. CARE OF YOUR WRIST INCISION; * Bruising or purple discoloration of the skin near the puncture site is common. * You may shower. * DO NOT submerge wrist. * Leave dressing on FOR 24 hours. HANNY PÉREZ MD Aug 04, 2022 15:17
[2022-08-04 16:16] VITALS: BP 139/120
== END 2022-08-04 16:10 | disposition home or self-care (01) ==
LOC: CATH 07:47 → CSD 15:46 → ICU 18:16 → CATH 08-04 16:10
PROVIDERS: ATTEND Internal Medicine Cardiovascular Disease
DX: I25.10 Atherosclerotic heart disease of native coronary artery without angina pectoris (principal); I10 Essential (primary) hypertension; E78.2 Mixed hyperlipidemia; I48.0 Paroxysmal atrial fibrillation; K21.9 Gastro-esophageal reflux disease without esophagitis; I21.4 Non-ST elevation (NSTEMI) myocardial infarction; F10.20 Alcohol dependence, uncomplicated; F17.210 Nicotine dependence, cigarettes, uncomplicated; E66.9 Obesity, unspecified; Z68.32 Body mass index [BMI] 32.0-32.9, adult
CPT/HCPCS: 71045; 80048; 80053; 81000; 83735; 84484; 85007; 85027 ×2; 85610; 85730; 87081; 93005 ×2; 93454; 93571; C1725 ×2; C1753; C1769; C1874 ×2; C1887; C1894; C9600; 36415

== ENCOUNTER → 2023-04-03 | Outpatient (CLI) | payer BC ==
[~2023-04-03] MED LIST changes: +HOLD METFORMIN - RECEIVED CONTRAST 20 ML VIAL IV SCH; +IOHEXOL 350 MG/ML 100 ML (OMNIPAQUE 350) VIAL IV ONE; +ISOS30TA82 PO; +NS 100 ML (IVPB) BAG IV ONE; +RIVA20TA PO; -ROSU20TA32; +ROSU20TA73
--- NOTE | 2023-04-03 09:55 | Diagnostic Imaging Report ---
PROCEDURE: CT Angio Abdomen/Pelvis with. TECHNIQUE: Multiple contiguous axial images were obtained through the abdomen and pelvis after the uneventful bolus administration of intravenous contrast. Sagittal and coronal MIP reconstructions with then performed. All CT scans use one or more of the following dose optimizing techniques: automated exposure control, MA and/or KvP adjustment based on patient size and exam type or iterative reconstruction. INDICATION: Peripheral vascular disease. No prior studies are available for comparison. The abdominal aorta is normal caliber. No aneurysm or dissection is identified. There are atherosclerotic changes throughout the abdominal aorta. The celiac and SMA are widely patent. Single renal arteries bilaterally appear to be widely patent. The DAISY is patent. Both common and external iliac arteries show some calcified plaque but no high-grade stenosis or occlusion is identified. The common femoral arteries appear to be widely patent bilaterally. The lung bases are clear. Liver and gallbladder are unremarkable. There is no biliary duct dilatation. Pancreas and spleen are unremarkable. No adrenal mass is detected. Kidneys are unremarkable. There is no hydronephrosis. Bowel loops are normal caliber and nonobstructed. Appendix is unremarkable. No inflammatory changes are seen. There is no free fluid or fluid collection. The bladder and prostate are unremarkable. IMPRESSION: Unremarkable CT angiogram of the abdomen and pelvis. Dictated by: Dictated on workstation # [id number]
== END ==
LOC: RAD 08:12
PROVIDERS: ATTEND Internal Medicine Cardiovascular Disease
DX: I73.9 Peripheral vascular disease, unspecified (principal)
CPT/HCPCS: 74174